=== PATIENT | male | born 1955 | race Caucasian/White ===

== ENCOUNTER 2022-06-21 17:19 | Outpatient (CLI) | payer BC | END 2022-06-21 17:20 | disposition home or self-care (01) | LOC: SCSRAD 17:19 | PROVIDERS: ATTEND Physician Assistant | DX: M25.532 Pain in left wrist (principal) ==

== ENCOUNTER 2024-10-08 12:48 | Outpatient (CLI) | payer BC | END 2024-10-08 12:49 | disposition home or self-care (01) | LOC: SCSRAD 12:48 | PROVIDERS: ATTEND Physician Assistant | DX: R09.02 Hypoxemia (principal) | CPT/HCPCS: 71046 ==